=== PATIENT | female | born 1960 | race Caucasian/White ===

== ENCOUNTER 2022-02-03 06:53 | Inpatient (IN) ==
[~2022-02-03 06:53] MED LIST: LACTATED RINGERS 1,000 ML IV SCH
[2022-02-03] MEDS ORDERED: FAMOTIDINE 20 MG TABLET PO ONE (07:05)
[2022-02-03] MEDS ORDERED: ACETAMINOPHEN 500 MG TABLET PO ONE (07:05)
[2022-02-03] MEDS ORDERED: GABAPENTIN 400 MG CAPSULE PO ONE (07:05)
[2022-02-03 07:27] LABS: PT Patient Result 10.8 SECS (10.1-12.1)
[2022-02-03] MEDS ORDERED: HEPARIN/NACL 0.9% 2 UNITS/ML 1,000 UNIT/500 ML BAG IV ONE (08:18)
[2022-02-03] MEDS ORDERED: LIDOCAINE 1% 5 ML VIAL ONE (08:37)
[2022-02-03] MEDS ORDERED: propofoL 200 MG/20 ML VIAL IV ONE (08:47)
[2022-02-03] MEDS ORDERED: ONDANSETRON 4 MG/2 ML VIAL ONE (08:47)
[2022-02-03] MEDS ORDERED: LIDOCAINE 2% 5 ML VIAL ONE (08:47)
[2022-02-03] MEDS ORDERED: ROCURONIUM 50 MG/5 ML VIAL IV ONE (08:47)
[2022-02-03] MEDS ORDERED: LACTATED RINGERS 1,000 ML IV ONE (10:05)
[2022-02-03] MEDS ORDERED: SUFentanil 50 MCG/ML AMP ONE (10:17)
[2022-02-03] MEDS ORDERED: SEVOFLURANE 1 UNIT/15 MINUTE INH ONE ×6 (10:21→11:49)
[2022-02-03] MEDS ORDERED: NEOSTIGMINE 10 MG/10 ML VIAL ONE (11:06)
[2022-02-03] MEDS ORDERED: GLYCOPYRROLATE 0.4 MG/2 ML VIAL ONE (11:06)
[2022-02-03] MEDS ORDERED: TISSUE ADHESIVE 1 EACH APPLICATOR TOP ONE (11:12)
[2022-02-03] MEDS ORDERED: KETOROLAC 30 MG/1 ML VIAL ONE (11:15)
[2022-02-03] MEDS ORDERED: ACETAMINOPHEN 325 MG TABLET PO PRN (11:24)
[2022-02-03] MEDS ORDERED: ONDANSETRON 4 MG/2 ML VIAL IV PRN ×2 (11:24→12:39)
[2022-02-03] MEDS: HYDROmorphone 1 MG/1 ML SYRINGE IV PRN ×3 (12:15→13:51)
[2022-02-03] MEDS ORDERED: fentaNYL 2 MCG/ROPIV 0.2% EPID 100 ML EPIDURAL ONE (12:17)
[2022-02-03] MEDS ORDERED: MEPERIDINE 25 MG/1 ML VIAL IV PRN (12:39)
[2022-02-03] MEDS ORDERED: buprenorphine HCL 0.3 MG/ML VIAL ONE ×2 (12:41→15:37)
[2022-02-03] MEDS ORDERED: BUPIVACAINE SPINAL 0.75% 2 ML AMP SPINAL ONE (12:43)
[2022-02-03] MEDS ORDERED: ALBUTEROL 2.5 MG/3 ML NEB RESP TX PRN (13:44)
[2022-02-03] MEDS: ROPIVACAINE 0.2% 100 ML EPIDURAL SCH (13:45)
[2022-02-03] MEDS: POTASSIUM CHLORIDE INJ 10 MEQ in SODIUM CHLORIDE 0.45% 1,000 ML IV SCH (14:26)
[2022-02-03] MEDS: lisinopriL 20 MG TABLET PO SCH (16:24)
[2022-02-03] MEDS: KETOROLAC 30 MG/1 ML VIAL IV PRN (17:41)
[2022-02-03] MEDS ORDERED: MELATONIN 3 MG TABLET PO PRN (19:12)
[2022-02-03] MEDS: QUEtiapine 100 MG TABLET PO SCH (20:17)
[2022-02-04] MEDS: KETOROLAC 30 MG/1 ML VIAL IV PRN (00:39)
[2022-02-04 05:08] LABS: Basophils % 0.3 % (0.0-0.8); Eosinophils % 0.1 % (0.00-10.9); Hemoglobin 11.5 GM/DL (12.0-16.0); Immature Granulocytes % 1.2 %; Immature Granulocytes Absolute 0.17 #; Lymphocytes # 1.3 10*3/uL (1.4-4.0); Lymphocytes % 8.8 % (21.3-54.2); Mean Corpuscular HGB Conc 31.9 GM/DL (32-36); Mean Corpuscular Volume 90.7 FL (87-102); Mean Platelet Volume 10.4 FL (9.6-12.0); Monocytes # 1.6 10*3/uL (0.11-0.8); Monocytes % 11.3 % (1.7-12.7); Neutrophils % 78.3 % (38.7-73.9); Platelet Count 235 T/CUMM (130-400); Red Blood Count 3.97 MC/CUMM (3.8-5.5); White Blood Count 14.3 T/CUMM (4-12)
[2022-02-04] MEDS: ROPIVACAINE 0.2% 100 ML EPIDURAL SCH ×2 (05:28→15:43)
[2022-02-04] MEDS ORDERED: ENOXAPARIN 40 MG/0.4 ML SYRINGE SUBCUT SCH (05:30)
[2022-02-04 05:32] LABS: Calcium 8.3 MG/DL (8.5-10.1); Osmolality,Calculated 281.4 MOS/KG (273-304); Potassium 3.9 MMOL/L (3.5-5.1)
[2022-02-04] MEDS: HYDROmorphone 1 MG/1 ML SYRINGE IV PRN ×4 (05:35→18:35)
[2022-02-04] MEDS: POTASSIUM CHLORIDE INJ 10 MEQ in SODIUM CHLORIDE 0.45% 1,000 ML IV SCH (06:44)
[2022-02-04] MEDS: lisinopriL 20 MG TABLET PO SCH (08:56)
[2022-02-04] MEDS: CHOLECALCIFEROL 5,000 UNIT TABLET PO SCH (08:56)
[2022-02-04] MEDS: GABAPENTIN 400 MG CAPSULE PO SCH (08:56)
[2022-02-04] MEDS: KETOROLAC 10 MG TABLET PO SCH ×2 (12:21→17:50)
[2022-02-04] MEDS: QUEtiapine 100 MG TABLET PO SCH (20:57)
[2022-02-05] MEDS: KETOROLAC 10 MG TABLET PO SCH ×5 (00:27→23:55)
[2022-02-05] MEDS: HYDROmorphone 1 MG/1 ML SYRINGE IV PRN ×3 (04:00→19:26)
[2022-02-05] MEDS: lisinopriL 20 MG TABLET PO SCH (08:30)
[2022-02-05] MEDS: GABAPENTIN 400 MG CAPSULE PO SCH (08:30)
[2022-02-05] MEDS: CHOLECALCIFEROL 5,000 UNIT TABLET PO SCH (08:30)
[2022-02-05] MEDS: QUEtiapine 100 MG TABLET PO SCH (20:52)
[2022-02-06] MEDS: KETOROLAC 10 MG TABLET PO SCH ×3 (06:24→17:51)
[2022-02-06] MEDS: CHOLECALCIFEROL 5,000 UNIT TABLET PO SCH (08:32)
[2022-02-06] MEDS: lisinopriL 20 MG TABLET PO SCH (08:32)
[2022-02-06] MEDS: GABAPENTIN 400 MG CAPSULE PO SCH (08:33)
[2022-02-06] MEDS: QUEtiapine 100 MG TABLET PO SCH (20:51)
[2022-02-07] MEDS: KETOROLAC 10 MG TABLET PO SCH ×3 (00:31→11:18)
[2022-02-07] MEDS: GABAPENTIN 400 MG CAPSULE PO SCH (08:04)
[2022-02-07] MEDS: CHOLECALCIFEROL 5,000 UNIT TABLET PO SCH (08:05)
[2022-02-07] MEDS: lisinopriL 20 MG TABLET PO SCH (08:05)
[2022-02-07 11:45] VITALS: BP 130/79
== END 2022-02-07 13:31 | disposition home or self-care (01) | DRG 120 ==
LOC: N.SDSINP 06:53 → N.ICU 13:31 → N.3E 15:28
PROVIDERS: ADMIT Surgery; ATTEND Surgery